=== PATIENT | male | born 1935 | race Caucasian/White ===

== ENCOUNTER 2016-04-23 04:46 | Emergency (ER) | payer OTHER, MEDICARE ==
[~2016-04-23] VITALS: Ht 188 cm; Wt 88.2 kg
[~2016-04-23 04:46] MED LIST: ADVIL200 MG PO; AGGRENOX1 CAPSULE PO; Aggrenox PO; CIALIS10 MG PO; CITALOPRAM HBR10 MG PO; DIABETA,MICRONAS5 MG PO; Dulcolax PO; ENDOCET 10-3251 EACH PO; FINASTERIDE5 MG PO; FLUDROCORTISON0.1 M1 PO; FOLIC ACID1 MG PO; GLUCAGON1 MG IM; GLUCOPHAGE XR750 MG PO; GLYBURID-METFO1 EAC2 PO; Glucophage PO; LITE COAT ASPI325 M1 PO; LOVASTATIN40 MG PO; Mycostatin TP; NITROSTAT,NITR0.4 M1 SL; Neurontin PO; OXYCODONE-ACET1 EACH PO; OYST-CAL D, OS500 M1 PO; PERCOCET 10/1 TABLE1 PO; PERCOCET 10/1 TABLET PO; PROAIR HFA8.5 GM IH; SENOKOT S,PE1 TABLET PO; SUPER B COMP1 TABLET PO; TAMSULOSIN HCL0.4 MG PO; THERAGRAN1 TABLET PO; TYLENOL ARTHRI650 MG PO; TYLENOL REGULA325 MG PO; ULTRAM50 MG PO; VIAGRA50 MG PO; VITAMIN C1000 MG PO; VITAMIN C500 M1 PO; VITAMIN D310000 UNI1 PO; VITAMIN D400 UNIT PO; ZESTRIL,PRINIV2.5 MG PO; ZESTRIL2.5 MG PO; Zocor PO
[2016-04-23 05:47] LABS: CHLORIDE 105 mEq/L (99-109); HEMATOCRIT 36.1 % (38.0-50.0); MCH 29.5 PG (29.0-34.0); MCHC 32.7 G/DL (30.0-36.0); MCV 90.3 FL (86-99); MEAN PLAT.VOLUME 10.2 uM^3 (9.0-12.4); PLATELET COUNT 108 K/uL (156-360); POTASSIUM 4.1 mEq/L (3.7-5.4); RBC DIS.WIDTH-CV 14.3 % (11.8-14.6); RBC DIS.WIDTH-SD 45.9 % (39-53); SODIUM 142 mEq/L (136-147); WHITE BLOOD COUNT 8.7 K/uL (4.1-10.2)
[2016-04-23 05:49] LABS: GLUCOSE 125 mg/dL (70-99)
[2016-04-23 05:50] LABS: ANION GAP 11 MEQ/L (2-14)
[2016-04-23 05:53] LABS: GFR ESTIMATE (CALCULATED) > 59 mL/min/; UREA NITROGEN (BUN) 23 mg/dL (9-23)
[2016-04-23 05:55] LABS: ADD MIUA? NO; BILIRUBIN NEGATIVE; BLOOD NEGATIVE; COLOR YELLOW ((YELLOW)); GLUCOSE (STRIP) NEGATIVE; KETONES NEGATIVE; LEUKOCYTES NEGATIVE; NITRITE NEGATIVE; PROTEIN (STRIP) NEGATIVE; SPECIFIC GRAVITY 1.018 (1.000-1.030); UCUL ADDED? NO; UROBILINOGEN 0.2 MG/DL (0.2-1.0)
[2016-04-23 05:56] LABS: TROP-I INTERPRETATION NEGATIVE; TROPONIN-I 0.02 ng/mL (0.0-0.30)
[2016-04-23] MEDS ORDERED: AMIODARONE HCL200 MG PO (13:35)
[2016-04-23 13:36] VITALS: BP 160/71
[2016-04-23] MEDS ORDERED: LASIX40 MG PO (13:37)
[2016-04-23] MEDS ORDERED: ROCEPHIN1000 MG IM (13:38)
[2016-04-23] MEDS ORDERED: SPIRIVA RESPIMAT4 GM IH (13:47)
== END 2016-04-23 13:37 | disposition home or self-care (01) ==
LOC: EME 04:46
PROVIDERS: Emergency Medicine
DX: E86.0 Dehydration (principal); R41.0 Disorientation, unspecified; Z85.46 Personal history of malignant neoplasm of prostate; Z86.73 Personal history of transient ischemic attack (TIA), and cerebral infarction without residual deficits
CPT/HCPCS: 70450; 71020; 80048; 81003; 83605; 84484; 85027; 87086; 93005; 99281; 99285; J7030; J7050

== ENCOUNTER 2016-04-26 13:31 | Emergency (ER) | payer OTHER, MEDICARE ==
[~2016-04-26] VITALS: Ht 188 cm; Wt 89.5 kg
[~2016-04-26 13:31] MED LIST changes: +AMIODARONE HCL200 MG PO; +LASIX40 MG PO; +ROCEPHIN1000 MG IM; +SPIRIVA RESPIMAT4 GM IH
[2016-04-26 14:01] LABS: HEMATOCRIT 34.3 % (38.0-50.0); MCH 29.1 PG (29.0-34.0); MCHC 31.8 G/DL (30.0-36.0); MCV 91.5 FL (86-99); MEAN PLAT.VOLUME 10.4 uM^3 (9.0-12.4); PLATELET COUNT 101 K/uL (156-360); RBC DIS.WIDTH-CV 14.5 % (11.8-14.6); RBC DIS.WIDTH-SD 47.4 % (39-53); RED BLOOD COUNT 3.75 M/uL (4.00-5.50); WHITE BLOOD COUNT 4.5 K/uL (4.1-10.2)
[2016-04-26 14:06] LABS: CHLORIDE 108 mEq/L (99-109); POTASSIUM 3.8 mEq/L (3.7-5.4); SODIUM 144 mEq/L (136-147)
[2016-04-26 14:09] LABS: GLUCOSE 140 mg/dL (70-99)
[2016-04-26 14:10] LABS: ANION GAP 9 MEQ/L (2-14); TOTAL BILIRUBIN 0.8 mg/dL (0.0-1.0)
[2016-04-26 14:12] LABS: ALKALINE PHOSPHATASE 65 IU/L (3-129); GFR ESTIMATE (CALCULATED) > 59 mL/min/
[2016-04-26 14:13] LABS: UREA NITROGEN (BUN) 16 mg/dL (9-23)
[2016-04-26] MEDS ORDERED: MOTRIN800 MG PO (16:52)
[2016-04-26 17:20] VITALS: BP 160/83
== END 2016-04-26 17:34 | disposition home or self-care (01) ==
LOC: EME 13:31
PROVIDERS: Emergency Medicine
DX: M17.0 Bilateral primary osteoarthritis of knee (principal); E11.9 Type 2 diabetes mellitus without complications; Z86.73 Personal history of transient ischemic attack (TIA), and cerebral infarction without residual deficits; Z85.46 Personal history of malignant neoplasm of prostate; W18.30XA Fall on same level, unspecified, initial encounter
CPT/HCPCS: 73564; 80053; 85027; 99281; 99284

== ENCOUNTER 2016-06-04 12:36 | Emergency (ER) | payer OTHER, MEDICARE ==
[~2016-06-04] VITALS: Ht 188 cm; Wt 81.0 kg
[~2016-06-04 12:36] MED LIST changes: +MOTRIN800 MG PO
[2016-06-04 14:34] LABS: EOSINOPHIL COUNT 0.1 K/uL (0-0.3); HEMATOCRIT 35.6 % (38.0-50.0); IMMATURE GRANULOCYTE (%) 0.2 % (0.0-0.7); IMMATURE GRANULOCYTE COUNT 0.2 K/uL; LYMPHOCYTE COUNT 0.5 K/uL (1.0-2.8); MCH 28.9 PG (29.0-34.0); MCHC 32.9 G/DL (30.0-36.0); MCV 87.9 FL (86-99); MEAN PLAT.VOLUME 10.4 uM^3 (9.0-12.4); MONOCYTE (%) 10.5 % (3-12); MONOCYTE COUNT 0.8 K/uL (0-0.8); NEUTROPHIL (%) 82.3 % (45-76); NEUTROPHIL COUNT 6.6 K/uL (1.8-6.4); PLATELET COUNT 124 K/uL (156-360); RBC DIS.WIDTH-CV 14.5 % (11.8-14.6); RBC DIS.WIDTH-SD 45.4 % (39-53); RED BLOOD COUNT 4.05 M/uL (4.00-5.50)
[2016-06-04 14:47] LABS: CHLORIDE 103 mEq/L (99-109); POTASSIUM 4.4 mEq/L (3.7-5.4); SODIUM 136 mEq/L (136-147)
[2016-06-04 14:49] LABS: GLUCOSE 124 mg/dL (70-99)
[2016-06-04 14:51] LABS: ANION GAP 9 MEQ/L (2-14); TOTAL BILIRUBIN 0.8 mg/dL (0.0-1.0)
[2016-06-04 14:53] LABS: ALKALINE PHOSPHATASE 79 IU/L (3-129); GFR ESTIMATE (CALCULATED) > 59 mL/min/
[2016-06-04 14:54] LABS: UREA NITROGEN (BUN) 12 mg/dL (9-23)
[2016-06-04 14:56] LABS: TROP-I INTERPRETATION NEGATIVE; TROPONIN-I 0.04 ng/mL (0.0-0.30)
[2016-06-04 15:33] LABS: INFLUENZA A VIRAL ANTIGEN NEGATIVE; INFLUENZA B VIRAL ANTIGEN NEGATIVE
[2016-06-04 16:03] LABS: ADD MIUA? YES; BILIRUBIN NEGATIVE; BLOOD NEGATIVE; COLOR AMBER ((YELLOW)); GLUCOSE (STRIP) NEGATIVE; KETONES 5; LEUKOCYTES TRACE; NITRITE NEGATIVE; PROTEIN (STRIP) 100; SPECIFIC GRAVITY 1.021 (1.000-1.030); UROBILINOGEN 0.2 MG/DL (0.2-1.0)
[2016-06-04 16:32] LABS: BACTERIA NONE SEEN /HPF; EPITHELIAL CELLS NONE SEEN /HPF; MUCUS NONE SEEN /LPF; RED BLOOD CELLS 0-5 /HPF (0-5); UCUL ADDED? NO; WHITE BLOOD CELLS NONE SEEN /HPF (0-5)
[2016-06-04 17:47] VITALS: BP 133/68
== END 2016-06-04 17:53 | disposition home or self-care (01) ==
LOC: EME 12:36
PROVIDERS: Emergency Medicine
DX: R53.1 Weakness (principal); M25.561 Pain in right knee; M25.562 Pain in left knee; R05 Cough; R11.0 Nausea; E11.9 Type 2 diabetes mellitus without complications; Z79.82 Long term (current) use of aspirin
CPT/HCPCS: 71010; 80053; 81003; 84484; 85025; 87502; 93005; 99281; 99285

== ENCOUNTER 2016-06-13 17:12 | Inpatient (IN) | payer OTHER, MEDICARE ==
[~2016-06-13] VITALS: Ht 188 cm; Wt 79.6 kg
[2016-06-13 18:40] LABS: EOSINOPHIL (%) 2.2 % (0-5); EOSINOPHIL COUNT 0.2 K/uL (0-0.3); HEMATOCRIT 42.2 % (38.0-50.0); IMMATURE GRANULOCYTE (%) 1.3 % (0.0-0.7); IMMATURE GRANULOCYTE COUNT 0.1 K/uL; INSTRUMENT ABS NEUTROPHIL CT 5.3 K/uL; LYMPHOCYTE COUNT 0.8 K/uL (1.0-2.8); MCH 28.3 PG (29.0-34.0); MCHC 31.3 G/DL (30.0-36.0); MCV 90.4 FL (86-99); MEAN PLAT.VOLUME 9.9 uM^3 (9.0-12.4); MONOCYTE (%) 7.6 % (3-12); MONOCYTE COUNT 0.5 K/uL (0-0.8); NEUTROPHIL (%) 77.2 % (45-76); NEUTROPHIL COUNT 5.3 K/uL (1.8-6.4); RBC DIS.WIDTH-SD 46.6 % (39-53); RED BLOOD COUNT 4.67 M/uL (4.00-5.50); WHITE BLOOD COUNT 6.9 K/uL (4.1-10.2)
[2016-06-13 18:47] LABS: PLATELET COUNT 215 K/uL (156-360)
[2016-06-13 18:50] LABS: CHLORIDE 102 mEq/L (99-109); SODIUM 138 mEq/L (136-147)
[2016-06-13 18:52] LABS: GLUCOSE 177 mg/dL (70-99)
[2016-06-13 18:53] LABS: ANION GAP 11 MEQ/L (2-14)
[2016-06-13 18:54] LABS: TOTAL BILIRUBIN 0.7 mg/dL (0.0-1.0)
[2016-06-13 18:55] LABS: ALKALINE PHOSPHATASE 217 IU/L (3-129)
[2016-06-13 18:56] LABS: GFR ESTIMATE (CALCULATED) > 59 mL/min/
[2016-06-13 18:57] LABS: UREA NITROGEN (BUN) 21 mg/dL (9-23)
[2016-06-13 19:00] LABS: TROP-I INTERPRETATION NEGATIVE; TROPONIN-I < 0.01 ng/mL (0.0-0.30)
[2016-06-13 19:07] LABS: ADD MIUA? YES; BILIRUBIN NEGATIVE; BLOOD NEGATIVE; COLOR AMBER ((YELLOW)); GLUCOSE (STRIP) NEGATIVE; KETONES NEGATIVE; LEUKOCYTES NEGATIVE; NITRITE NEGATIVE; PROTEIN (STRIP) 30; SPECIFIC GRAVITY 1.026 (1.000-1.030); UROBILINOGEN 0.2 MG/DL (0.2-1.0)
[2016-06-13 19:18] LABS: BACTERIA RARE /HPF; CALCIUM OXALATE CRYSTALS 2+ /HPF; EPITHELIAL CELLS RARE /HPF; MUCUS TRACE /LPF; RED BLOOD CELLS 0-5 /HPF (0-5); UCUL ADDED? NO; WHITE BLOOD CELLS 0-5 /HPF (0-5)
[2016-06-13] MEDS ORDERED: ARICEPT5 MG PO (19:48)
[2016-06-13] MEDS ORDERED: WELLBUTRIN XL150 MG PO (19:49)
[2016-06-13] MEDS ORDERED: PERCOCET 10/1 TABLET PO (19:49)
[2016-06-13] MEDS ORDERED: CELEBREX200 MG PO (19:49)
[2016-06-14] VITALS (12 sets, daily range): BP systolic 81–178; BP diastolic 51–79
[2016-06-14 06:03] LABS: ANION GAP 8 MEQ/L (2-14); CHLORIDE 105 MEQ/L (99-109); GFR ESTIMATE (CALCULATED) > 59 mL/min/; POTASSIUM 4.1 MEQ/L (3.7-5.4); SAMPLE HEMOLYSIS CHECK 0; SAMPLE ICTERIC CHECK 0; SAMPLE LIPEMIA CHECK 0; SODIUM 142 MEQ/L (136-147); UREA NITROGEN (BUN) 17 mg/dL (9-23)
[2016-06-14 06:07] LABS: GLUCOSE 102 mg/dL (70-99)
[2016-06-14 08:26] LABS: ALKALINE PHOSPHATASE 162 IU/L (3-129); DIRECT BILIRUBIN 0.2 mg/dL (0.0-0.3); TOTAL BILIRUBIN 0.6 MG/DL (0.0-1.0)
[2016-06-14 09:04] LABS: TROP-I INTERPRETATION NEGATIVE; TROPONIN-I < 0.01 ng/mL (0.0-0.30)
[2016-06-15] VITALS (8 sets, daily range): BP systolic 108–187; BP diastolic 58–85
[2016-06-15] MEDS ORDERED: FLORINEF ACETA0.1 MG PO (16:50)
== END 2016-06-15 19:00 | disposition home or self-care (01) | DRG 312 ==
LOC: EME → EDBD 17:12 → EME 17:12 → EDOF 20:49 → 5WEST 20:49 → EDOF 20:49 → 5WEST 23:09
PROVIDERS: Emergency Medicine; Family Medicine; Nurse Practitioner Family
DX: I95.1 Orthostatic hypotension (principal); R29.6 Repeated falls; F03.90 Unspecified dementia, unspecified severity, without behavioral disturbance, psychotic disturbance, mood disturbance, and anxiety; E11.9 Type 2 diabetes mellitus without complications; Z85.038 Personal history of other malignant neoplasm of large intestine; I10 Essential (primary) hypertension; Z86.73 Personal history of transient ischemic attack (TIA), and cerebral infarction without residual deficits
CPT/HCPCS: 70450; 70486; 71020; 80048; 80053; 80076; 81003; 84484; 85025; 93005; 99281; 99285; G0378; G8987 GO CJ; G8988 CI; G8989 GO CH; J7030; J7040

== ENCOUNTER 2016-07-01 11:30 | Inpatient (IN) | payer OTHER, MEDICARE ==
[~2016-07-01] VITALS: Ht 188 cm; Wt 76.6 kg
[~2016-07-01 11:30] MED LIST changes: +ARICEPT5 MG PO; +CELEBREX200 MG PO; +FLORINEF ACETA0.1 MG PO; +WELLBUTRIN XL150 MG PO
[2016-07-01 12:27] LABS: CHLORIDE 105 mEq/L (99-109); POTASSIUM 3.9 mEq/L (3.7-5.4); SODIUM 142 mEq/L (136-147)
[2016-07-01 12:28] LABS: INTER. NORMALIZED RATIO 1.1; PROTHROMBIN TIME 11.6 (9.2-11.2); PTT 27.4 (25-32)
[2016-07-01 12:29] LABS: GLUCOSE 170 mg/dL (70-99)
[2016-07-01 12:31] LABS: ANION GAP 8 MEQ/L (2-14); TOTAL BILIRUBIN 0.5 mg/dL (0.0-1.0)
[2016-07-01 12:33] LABS: ALKALINE PHOSPHATASE 84 IU/L (3-129); GFR ESTIMATE (CALCULATED) > 59 mL/min/
[2016-07-01 12:34] LABS: UREA NITROGEN (BUN) 11 mg/dL (9-23)
[2016-07-01 12:39] LABS: TROP-I INTERPRETATION NEGATIVE; TROPONIN-I < 0.01 ng/mL (0.0-0.30)
[2016-07-01 13:20] LABS: HEMATOCRIT 35.4 % (38.0-50.0); MCH 28.4 PG (29.0-34.0); MCHC 31.1 G/DL (30.0-36.0); MCV 91.2 FL (86-99); RBC DIS.WIDTH-CV 14.6 % (11.8-14.6); RBC DIS.WIDTH-SD 48.7 % (39-53); RED BLOOD COUNT 3.88 M/uL (4.00-5.50); WHITE BLOOD COUNT 5.5 K/uL (4.1-10.2)
[2016-07-01 14:36] LABS: MEAN PLAT.VOLUME 10.9 uM^3 (9.0-12.4); PLATELET COUNT 96 K/uL (156-360)
[2016-07-01 14:59] LABS: PLAT.SUFFICIENCY DECREASED
[2016-07-01 15:28] LABS: ADD MIUA? NO; BILIRUBIN NEGATIVE; BLOOD NEGATIVE; COLOR YELLOW ((YELLOW)); GLUCOSE (STRIP) NEGATIVE; KETONES NEGATIVE; LEUKOCYTES NEGATIVE; NITRITE NEGATIVE; PROTEIN (STRIP) NEGATIVE; SPECIFIC GRAVITY 1.005 (1.000-1.030); UCUL ADDED? NO; UROBILINOGEN 0.2 MG/DL (0.2-1.0)
[2016-07-01 17:30] VITALS: BP 114/73
[2016-07-01 19:14] LABS: TROP-I INTERPRETATION NEGATIVE; TROPONIN-I 0.02 ng/mL (0.0-0.30)
[2016-07-01 19:24] VITALS: BP 178/84
[2016-07-01 22:11] LABS: POINT-OF-CARE METER ID UU14162513
[2016-07-02 00:34] VITALS: BP 194/88
[2016-07-02 01:05] LABS: TROP-I INTERPRETATION NEGATIVE; TROPONIN-I 0.01 ng/mL (0.0-0.30)
[2016-07-02 04:41] VITALS: BP 183/82
[2016-07-02 06:29] LABS: POINT-OF-CARE METER ID UU13113831
[2016-07-02 06:46] LABS: EOSINOPHIL (%) 2.7 % (0-5); EOSINOPHIL COUNT 0.1 K/uL (0-0.3); IMMATURE GRANULOCYTE (%) 0.6 % (0.0-0.7); INSTRUMENT ABS NEUTROPHIL CT 3.5 K/uL; LYMPHOCYTE COUNT 0.9 K/uL (1.0-2.8); MCH 28.4 PG (29.0-34.0); MCHC 31.5 G/DL (30.0-36.0); MCV 90.2 FL (86-99); MEAN PLAT.VOLUME 10.6 uM^3 (9.0-12.4); MONOCYTE (%) 11.8 % (3-12); MONOCYTE COUNT 0.6 K/uL (0-0.8); NEUTROPHIL (%) 66.7 % (45-76); NEUTROPHIL COUNT 3.5 K/uL (1.8-6.4); PLATELET COUNT 85 K/uL (156-360); RBC DIS.WIDTH-CV 14.6 % (11.8-14.6); RBC DIS.WIDTH-SD 47.8 % (39-53); RED BLOOD COUNT 3.77 M/uL (4.00-5.50); WHITE BLOOD COUNT 5.2 K/uL (4.1-10.2)
[2016-07-02 07:11] LABS: ALKALINE PHOSPHATASE 79 IU/L (3-129); ANION GAP 7 MEQ/L (2-14); CHLORIDE 107 MEQ/L (99-109); DIRECT BILIRUBIN 0.2 mg/dL (0.0-0.3); GFR ESTIMATE (CALCULATED) > 59 mL/min/; GLUCOSE 87 mg/dL (70-99); POTASSIUM 3.4 MEQ/L (3.7-5.4); SAMPLE HEMOLYSIS CHECK 0; SAMPLE ICTERIC CHECK 0; SAMPLE LIPEMIA CHECK 0; SODIUM 143 MEQ/L (136-147); TOTAL BILIRUBIN 0.7 MG/DL (0.0-1.0); UREA NITROGEN (BUN) 10 mg/dL (9-23)
[2016-07-02 08:34] VITALS: BP 143/68
[2016-07-02 11:24] VITALS: BP 181/74
[2016-07-02] MEDS ORDERED: BUPROPION HCL150 M2 PO (11:39)
[2016-07-02] MEDS ORDERED: CITALOPRAM HBR10 MG PO (11:40)
[2016-07-02] MEDS ORDERED: FINASTERIDE5 MG PO (11:40)
[2016-07-02] MEDS ORDERED: GLUCOPHAGE XR750 MG PO (11:41)
[2016-07-02] MEDS ORDERED: TAMSULOSIN HCL0.4 MG PO (11:41)
[2016-07-02] MEDS ORDERED: ARICEPT5 MG PO (11:42)
[2016-07-02] MEDS ORDERED: FOLIC ACID1 MG PO (11:42)
[2016-07-02] MEDS ORDERED: LOVASTATIN40 MG PO (11:44)
[2016-07-02] MEDS ORDERED: B-COMPLEX-VITA1 EACH (11:44)
[2016-07-02] MEDS ORDERED: MIDODRINE HCL10 MG PO (11:44)
[2016-07-02] MEDS ORDERED: CELECOXIB200 MG PO (11:45)
[2016-07-02] MEDS ORDERED: LITE COAT ASPI325 M1 PO (11:45)
[2016-07-02] MEDS ORDERED: FLUDROCORTISON0.1 M1 PO (11:47)
[2016-07-02 17:00] VITALS: BP 201/91
[2016-07-02 20:12] VITALS: BP 167/71
[2016-07-02 21:00] LABS: POINT-OF-CARE METER ID UU13113700
[2016-07-03] VITALS (12 sets, daily range): BP systolic 128–191; BP diastolic 60–87
[2016-07-03 08:01] LABS: POINT-OF-CARE METER ID UU14162513
[2016-07-03 12:20] LABS: Estimated Average Glucose 120 mg/dL (70-123); HEMOGLOBIN A1c (GLYCOHEMOGLOB) 5.8 % HGB (Below 5.7)
[2016-07-03 12:39] LABS: POINT-OF-CARE METER ID UU14162513
[2016-07-03 18:13] LABS: POINT-OF-CARE METER ID UU14188625
[2016-07-04 00:03] VITALS: BP 165/89
[2016-07-04 04:00] VITALS: BP 189/88
[2016-07-04 07:38] LABS: EOSINOPHIL (%) 2.9 % (0-5); EOSINOPHIL COUNT 0.1 K/uL (0-0.3); HEMATOCRIT 35.3 % (38.0-50.0); IMM.RETIC FRACTION 11.3 % (3-19); IMMATURE GRANULOCYTE (%) 0.4 % (0.0-0.7); INSTRUMENT ABS NEUTROPHIL CT 3.3 K/uL; LYMPHOCYTE COUNT 0.8 K/uL (1.0-2.8); MCH 28.4 PG (29.0-34.0); MCHC 31.7 G/DL (30.0-36.0); MCV 89.4 FL (86-99); MONOCYTE (%) 11.1 % (3-12); MONOCYTE COUNT 0.5 K/uL (0-0.8); NEUTROPHIL (%) 68.5 % (45-76); NEUTROPHIL COUNT 3.3 K/uL (1.8-6.4); PLATELET COUNT 98 K/uL (156-360); RBC DIS.WIDTH-CV 14.7 % (11.8-14.6); RBC DIS.WIDTH-SD 47.8 % (39-53); RED BLOOD COUNT 3.95 M/uL (4.00-5.50); RETIC HGB EQUIVALENT 34.2 (28-36); WHITE BLOOD COUNT 4.8 K/uL (4.1-10.2)
[2016-07-04 07:39] LABS: RETICULOCYTE COUNT 1.3 % (0.5-1.8)
[2016-07-04 07:41] VITALS: BP 124/64
[2016-07-04 08:01] LABS: ALKALINE PHOSPHATASE 73 IU/L (3-129); ANION GAP 9 MEQ/L (2-14); CHLORIDE 109 MEQ/L (99-109); GFR ESTIMATE (CALCULATED) > 59 mL/min/; GLUCOSE 91 mg/dL (70-99); IRON 49 MCG/DL (35-150); POTASSIUM 3.3 MEQ/L (3.7-5.4); SAMPLE HEMOLYSIS CHECK 0; SAMPLE ICTERIC CHECK 0; SAMPLE LIPEMIA CHECK 0; SODIUM 143 MEQ/L (136-147); TOTAL BILIRUBIN 0.6 MG/DL (0.0-1.0); UREA NITROGEN (BUN) 9 mg/dL (9-23)
[2016-07-04 08:18] LABS: FERRITIN 21 NG/ML (22-322)
[2016-07-04 12:05] VITALS: BP 149/71
[2016-07-04 16:26] VITALS: BP 165/77
[2016-07-04 20:00] VITALS: BP 189/81
[2016-07-05] VITALS (9 sets, daily range): BP systolic 132–177; BP diastolic 67–82
[2016-07-05 07:24] LABS: ANION GAP 7 MEQ/L (2-14); CHLORIDE 110 MEQ/L (99-109); GFR ESTIMATE (CALCULATED) > 59 mL/min/; GLUCOSE 94 mg/dL (70-99); POTASSIUM 3.5 MEQ/L (3.7-5.4); SAMPLE HEMOLYSIS CHECK 0; SAMPLE ICTERIC CHECK 0; SAMPLE LIPEMIA CHECK 0; SODIUM 144 MEQ/L (136-147); UREA NITROGEN (BUN) 11 mg/dL (9-23)
[2016-07-05 07:37] LABS: POINT-OF-CARE METER ID UU14174225
[2016-07-05 16:30] LABS: POINT-OF-CARE METER ID UU14174225
[2016-07-06] VITALS (10 sets, daily range): BP systolic 121–179; BP diastolic 64–93
[2016-07-06 07:15] LABS: EOSINOPHIL (%) 2.1 % (0-5); EOSINOPHIL COUNT 0.1 K/uL (0-0.3); HEMATOCRIT 33.6 % (38.0-50.0); IMMATURE GRANULOCYTE (%) 0.5 % (0.0-0.7); LYMPHOCYTE COUNT 0.7 K/uL (1.0-2.8); MCH 28.7 PG (29.0-34.0); MCHC 32.1 G/DL (30.0-36.0); MCV 89.4 FL (86-99); MEAN PLAT.VOLUME 10.3 uM^3 (9.0-12.4); MONOCYTE (%) 11.6 % (3-12); MONOCYTE COUNT 0.5 K/uL (0-0.8); NEUTROPHIL (%) 68.6 % (45-76); PLATELET COUNT 97 K/uL (156-360); RBC DIS.WIDTH-CV 15.1 % (11.8-14.6); RBC DIS.WIDTH-SD 48.9 % (39-53); RED BLOOD COUNT 3.76 M/uL (4.00-5.50); WHITE BLOOD COUNT 4.3 K/uL (4.1-10.2)
[2016-07-06 07:36] LABS: POINT-OF-CARE METER ID UU14174225
[2016-07-06 07:41] LABS: ANION GAP 6 MEQ/L (2-14); CHLORIDE 111 MEQ/L (99-109); GFR ESTIMATE (CALCULATED) > 59 mL/min/; GLUCOSE 101 mg/dL (70-99); POTASSIUM 3.4 MEQ/L (3.7-5.4); SAMPLE HEMOLYSIS CHECK 0; SAMPLE ICTERIC CHECK 0; SAMPLE LIPEMIA CHECK 0; SODIUM 143 MEQ/L (136-147); UREA NITROGEN (BUN) 9 mg/dL (9-23)
[2016-07-06 12:08] LABS: POINT-OF-CARE METER ID UU14174225
[2016-07-06 17:17] LABS: POINT-OF-CARE METER ID UU14174225
[2016-07-07 01:21] VITALS: BP 147/67
[2016-07-07 04:05] VITALS: BP 188/74
[2016-07-07 07:19] LABS: EOSINOPHIL (%) 2.6 % (0-5); EOSINOPHIL COUNT 0.1 K/uL (0-0.3); HEMATOCRIT 32.4 % (38.0-50.0); IMMATURE GRANULOCYTE (%) 0.5 % (0.0-0.7); INSTRUMENT ABS NEUTROPHIL CT 2.7 K/uL; LYMPHOCYTE COUNT 0.9 K/uL (1.0-2.8); MCH 28.7 PG (29.0-34.0); MCHC 31.5 G/DL (30.0-36.0); MCV 91.3 FL (86-99); MEAN PLAT.VOLUME 10.5 uM^3 (9.0-12.4); MONOCYTE (%) 12.6 % (3-12); MONOCYTE COUNT 0.5 K/uL (0-0.8); NEUTROPHIL (%) 63.1 % (45-76); NEUTROPHIL COUNT 2.7 K/uL (1.8-6.4); PLATELET COUNT 94 K/uL (156-360); RBC DIS.WIDTH-CV 15.1 % (11.8-14.6); RBC DIS.WIDTH-SD 50.6 % (39-53); RED BLOOD COUNT 3.55 M/uL (4.00-5.50); WHITE BLOOD COUNT 4.3 K/uL (4.1-10.2)
[2016-07-07 07:43] LABS: ANION GAP 5 MEQ/L (2-14); CHLORIDE 110 MEQ/L (99-109); GFR ESTIMATE (CALCULATED) > 59 mL/min/; GLUCOSE 101 mg/dL (70-99); POTASSIUM 3.5 MEQ/L (3.7-5.4); SAMPLE HEMOLYSIS CHECK 0; SAMPLE ICTERIC CHECK 0; SAMPLE LIPEMIA CHECK 0; SODIUM 142 MEQ/L (136-147); UREA NITROGEN (BUN) 9 mg/dL (9-23)
[2016-07-07 08:55] VITALS: BP 183/82
[2016-07-07 12:40] VITALS: BP 181/80
[2016-07-07 15:46] VITALS: BP 160/74
[2016-07-07] MEDS ORDERED: AMLODIPINE BESYL5 MG PO (15:53)
[2016-07-07 16:27] LABS: POINT-OF-CARE METER ID UU14174225
== END 2016-07-07 17:22 | DRG 312 ==
LOC: EME → EDBD 11:30 → EME 11:30 → EDOF 14:58 → 5WEST 14:58 → 5SOUTH 07-02 11:15 → 5WEST 07-02 11:15 → 5SOUTH 07-03 17:49
PROVIDERS: Emergency Medicine; Hospitalist; Internal Medicine; Nurse Practitioner Adult Health; Physician Assistant; Student in an Organized Health Care Education/Training Program
DX: I95.1 Orthostatic hypotension (principal); I24.9 Acute ischemic heart disease, unspecified; I10 Essential (primary) hypertension; E11.9 Type 2 diabetes mellitus without complications; F03.90 Unspecified dementia, unspecified severity, without behavioral disturbance, psychotic disturbance, mood disturbance, and anxiety; Z85.46 Personal history of malignant neoplasm of prostate; D64.9 Anemia, unspecified; D69.6 Thrombocytopenia, unspecified; E86.0 Dehydration; E87.6 Hypokalemia; I27.2 Other secondary pulmonary hypertension; I08.0 Rheumatic disorders of both mitral and aortic valves; L89.322 Pressure ulcer of left buttock, stage 2
CPT/HCPCS: 71020; 80048; 80053; 80076; 81003; 82607; 82728; 82746; 82948; 83036; 83540; 84466; 84484; 85025; 85027; 85045; 85610; 85730; 86850; 86900; 86901; 93005; 93306; 99281; 99285; G0378; J0360; J1644; J1815; J3480; J7030

== ENCOUNTER 2016-08-28 15:47 | Inpatient (IN) | payer OTHER, MEDICARE ==
[~2016-08-28] VITALS: Ht 188 cm; Wt 74.0 kg
[~2016-08-28 15:47] MED LIST changes: +AMLODIPINE BESYL5 MG PO; +B-COMPLEX-VITA1 EACH; +BUPROPION HCL150 M2 PO; +CELECOXIB200 MG PO; +MIDODRINE HCL10 MG PO
[2016-08-28 16:28] LABS: EOSINOPHIL (%) 2.7 % (0-5); EOSINOPHIL COUNT 0.2 K/uL (0-0.3); HEMATOCRIT 40.6 % (38.0-50.0); IMMATURE GRANULOCYTE (%) 0.3 % (0.0-0.7); INSTRUMENT ABS NEUTROPHIL CT 4.7 K/uL; LYMPHOCYTE COUNT 0.8 K/uL (1.0-2.8); MCH 29.1 PG (29.0-34.0); MCHC 32.5 G/DL (30.0-36.0); MCV 89.4 FL (86-99); MEAN PLAT.VOLUME 9.9 uM^3 (9.0-12.4); MONOCYTE (%) 8.8 % (3-12); MONOCYTE COUNT 0.6 K/uL (0-0.8); NEUTROPHIL (%) 75.8 % (45-76); NEUTROPHIL COUNT 4.7 K/uL (1.8-6.4); PLATELET COUNT 99 K/uL (156-360); RBC DIS.WIDTH-CV 14.7 % (11.8-14.6); RBC DIS.WIDTH-SD 48.2 % (39-53); RED BLOOD COUNT 4.54 M/uL (4.00-5.50); WHITE BLOOD COUNT 6.3 K/uL (4.1-10.2)
[2016-08-28 16:36] LABS: CHLORIDE 105 mEq/L (99-109); POTASSIUM 3.8 mEq/L (3.7-5.4); SODIUM 143 mEq/L (136-147)
[2016-08-28 16:38] LABS: GLUCOSE 144 mg/dL (70-99)
[2016-08-28 16:40] LABS: ADD MIUA? YES; BILIRUBIN NEGATIVE; BLOOD NEGATIVE; COLOR AMBER ((YELLOW)); GLUCOSE (STRIP) NEGATIVE; KETONES NEGATIVE; LEUKOCYTES NEGATIVE; NITRITE NEGATIVE; PROTEIN (STRIP) 30
[2016-08-28 16:40] LABS: ANION GAP 6 MEQ/L (2-14); TOTAL BILIRUBIN 0.6 mg/dL (0.0-1.0)
[2016-08-28 16:42] LABS: ALKALINE PHOSPHATASE 70 IU/L (3-129); GFR ESTIMATE (CALCULATED) > 59 mL/min/
[2016-08-28 16:43] LABS: UREA NITROGEN (BUN) 14 mg/dL (9-23)
[2016-08-28 16:45] LABS: BACTERIA NONE SEEN /HPF; CALCIUM OXALATE CRYSTALS 1+ /HPF; EPITHELIAL CELLS RARE /HPF; GRANULAR CASTS 0-5 /LPF; MUCUS TRACE /LPF; RED BLOOD CELLS 0-5 /HPF (0-5); UCUL ADDED? NO; WHITE BLOOD CELLS 0-5 /HPF (0-5)
[2016-08-28 16:46] LABS: LIPASE 69 U/L (1.0-51.0)
[2016-08-28 16:48] LABS: TROP-I INTERPRETATION NEGATIVE; TROPONIN-I 0.01 ng/mL (0.0-0.30)
[2016-08-28] MEDS ORDERED: ARICEPT10 MG PO (22:01)
[2016-08-28] MEDS ORDERED: WELLBUTRIN XL150 MG PO (22:02)
[2016-08-28] MEDS ORDERED: AMLODIPINE BESYL5 MG PO (22:02)
[2016-08-28] MEDS ORDERED: B COMPLETE1 EACH PO (22:03)
[2016-08-28] MEDS ORDERED: MIDODRINE HCL2.5 MG PO (22:03)
[2016-08-28] MEDS ORDERED: POTASSIUM CHLO20 ME1 PO (22:04)
[2016-08-28] MEDS ORDERED: TRAZODONE HCL50 MG PO (22:04)
[2016-08-29] VITALS (7 sets, daily range): BP systolic 147–197; BP diastolic 66–85
[2016-08-29 03:19] LABS: POINT-OF-CARE METER ID UU14162513
[2016-08-29 03:41] LABS: HDL CHOLESTEROL 31 MG/DL (Desirable>=40); LDL CHOLESTEROL 43 mg/dL (Desirable<100); NON-HDL CHOLESTEROL 56 mg/dL (Desirable<160); TOTAL CHOLESTEROL 87 mg/dL (Desirable<200); TRIGLYCERIDES 65 MG/DL (Normal: <150)
[2016-08-29 06:04] LABS: HEMATOCRIT 37.6 % (38.0-50.0); MCH 29.4 PG (29.0-34.0); MCV 89.1 FL (86-99); MEAN PLAT.VOLUME 10.6 uM^3 (9.0-12.4); PLATELET COUNT 102 K/uL (156-360); RBC DIS.WIDTH-CV 14.8 % (11.8-14.6); RBC DIS.WIDTH-SD 47.9 % (39-53); RED BLOOD COUNT 4.22 M/uL (4.00-5.50)
[2016-08-29 06:21] LABS: POINT-OF-CARE METER ID UU13113831
[2016-08-29 06:24] LABS: ALKALINE PHOSPHATASE 65 IU/L (3-129); ANION GAP 9 MEQ/L (2-14); CHLORIDE 103 MEQ/L (99-109); GFR ESTIMATE (CALCULATED) > 59 mL/min/; POTASSIUM 3.4 MEQ/L (3.7-5.4); SAMPLE HEMOLYSIS CHECK 0; SAMPLE ICTERIC CHECK 0; SAMPLE LIPEMIA CHECK 0; SODIUM 143 MEQ/L (136-147); TOTAL BILIRUBIN 0.7 MG/DL (0.0-1.0); UREA NITROGEN (BUN) 12 mg/dL (9-23)
[2016-08-29 06:27] LABS: GLUCOSE 103 mg/dL (70-99)
[2016-08-29 07:24] LABS: Estimated Average Glucose 111 mg/dL (70-123); HEMOGLOBIN A1c (GLYCOHEMOGLOB) 5.5 % HGB (Below 5.7)
[2016-08-29 08:51] LABS: POINT-OF-CARE METER ID UU13113831
[2016-08-29 12:36] LABS: POINT-OF-CARE METER ID UU13113831
[2016-08-29 17:25] LABS: POINT-OF-CARE METER ID UU14162513
[2016-08-29 21:07] LABS: POINT-OF-CARE METER ID UU13113831
[2016-08-30] VITALS (8 sets, daily range): BP systolic 134–165; BP diastolic 60–72
[2016-08-31 03:51] VITALS: BP 139/76
[2016-08-31 07:55] LABS: MCH 29.3 PG (29.0-34.0); MCHC 32.4 G/DL (30.0-36.0); MCV 90.5 FL (86-99); MEAN PLAT.VOLUME 10.3 uM^3 (9.0-12.4); PLATELET COUNT 106 K/uL (156-360); RBC DIS.WIDTH-CV 15.3 % (11.8-14.6); RBC DIS.WIDTH-SD 50.1 % (39-53); WHITE BLOOD COUNT 5.1 K/uL (4.1-10.2)
[2016-08-31 08:24] LABS: ANION GAP 9 MEQ/L (2-14); CHLORIDE 107 MEQ/L (99-109); MAGNESIUM 1.6 mg/dl (1.3-2.7); POTASSIUM 3.6 MEQ/L (3.7-5.4); SAMPLE HEMOLYSIS CHECK 0; SAMPLE ICTERIC CHECK 0; SAMPLE LIPEMIA CHECK 0; SODIUM 145 MEQ/L (136-147)
[2016-08-31 08:29] LABS: GFR ESTIMATE (CALCULATED) > 59 mL/min/; GLUCOSE 94 mg/dL (70-99); UREA NITROGEN (BUN) 14 mg/dL (9-23)
[2016-08-31 08:33] VITALS: BP 171/77
[2016-08-31 11:54] VITALS: BP 149/67
[2016-08-31 15:43] VITALS: BP 131/64
[2016-08-31 16:33] LABS: POINT-OF-CARE METER ID UU14174225
[2016-08-31 17:12] LABS: POINT-OF-CARE METER ID UU14188625
[2016-08-31 18:29] VITALS: BP 132/59
[2016-08-31 22:16] LABS: POINT-OF-CARE METER ID UU14174225
[2016-08-31 23:29] VITALS: BP 148/71
[2016-09-01 03:33] VITALS: BP 140/72
[2016-09-01 07:24] LABS: HEMATOCRIT 37.5 % (38.0-50.0); MCH 29.7 PG (29.0-34.0); MCHC 32.5 G/DL (30.0-36.0); MCV 91.2 FL (86-99); MEAN PLAT.VOLUME 10.5 uM^3 (9.0-12.4); PLATELET COUNT 107 K/uL (156-360); RBC DIS.WIDTH-CV 15.3 % (11.8-14.6); RBC DIS.WIDTH-SD 51.1 % (39-53); RED BLOOD COUNT 4.11 M/uL (4.00-5.50)
[2016-09-01 07:29] VITALS: BP 168/74
[2016-09-01 07:52] LABS: ANION GAP 8 MEQ/L (2-14); CHLORIDE 105 MEQ/L (99-109); GFR ESTIMATE (CALCULATED) > 59 mL/min/; GLUCOSE 84 mg/dL (70-99); MAGNESIUM 1.5 mg/dl (1.3-2.7); POTASSIUM 3.8 MEQ/L (3.7-5.4); SAMPLE HEMOLYSIS CHECK 0; SAMPLE ICTERIC CHECK 0; SAMPLE LIPEMIA CHECK 0; SODIUM 144 MEQ/L (136-147); UREA NITROGEN (BUN) 17 mg/dL (9-23)
[2016-09-01 10:57] VITALS: BP 115/64
[2016-09-01] MEDS ORDERED: NOVOLOG PE100 UNITS/ SC (13:10)
[2016-09-01 15:09] VITALS: BP 136/65
== END 2016-09-01 17:35 | DRG 65 ==
LOC: EME 15:47 → 5WEST 22:58 → EDOF 22:58 → 5WEST 08-29 00:13 → 5SOUTH 08-29 10:39 → 5WEST 08-29 10:39 → 5SOUTH 08-29 22:47
PROVIDERS: Emergency Medicine; Hospitalist; Internal Medicine
DX: I63.9 Cerebral infarction, unspecified (principal); G81.91 Hemiplegia, unspecified affecting right dominant side; R47.02 Dysphasia; D69.6 Thrombocytopenia, unspecified; D64.9 Anemia, unspecified; E11.9 Type 2 diabetes mellitus without complications; E78.5 Hyperlipidemia, unspecified; F03.90 Unspecified dementia, unspecified severity, without behavioral disturbance, psychotic disturbance, mood disturbance, and anxiety; I10 Essential (primary) hypertension; F32.9 Major depressive disorder, single episode, unspecified; G43.909 Migraine, unspecified, not intractable, without status migrainosus; I35.1 Nonrheumatic aortic (valve) insufficiency; R94.31 Abnormal electrocardiogram [ECG] [EKG]; Z79.82 Long term (current) use of aspirin; Z85.46 Personal history of malignant neoplasm of prostate; Z98.1 Arthrodesis status
CPT/HCPCS: 70450; 70551; 71010; 80048; 80053; 80061; 81003; 82948; 83036; 83605; 83690; 83735; 84484; 85025; 85027; 92526 GN; 92610 GN; 93005; 93880; 99281; 99284; G0378; J0360; J1644; J1815

== ENCOUNTER 2016-10-02 14:42 | Inpatient (IN) | payer OTHER, MEDICARE ==
[~2016-10-02] VITALS: Ht 188 cm; Wt 72.2 kg
[~2016-10-02 14:42] MED LIST changes: +ARICEPT10 MG PO; +B COMPLETE1 EACH PO; +MIDODRINE HCL2.5 MG PO; +NOVOLOG PE100 UNITS/ SC; +POTASSIUM CHLO20 ME1 PO; +TRAZODONE HCL50 MG PO
[2016-10-02 15:55] LABS: EOSINOPHIL (%) 4.7 % (0-5); EOSINOPHIL COUNT 0.2 K/uL (0-0.3); HEMATOCRIT 36.7 % (38.0-50.0); IMMATURE GRANULOCYTE (%) 0.6 % (0.0-0.7); INSTRUMENT ABS NEUTROPHIL CT 3.4 K/uL; LYMPHOCYTE COUNT 0.7 K/uL (1.0-2.8); MCH 29.5 PG (29.0-34.0); MCHC 31.9 G/DL (30.0-36.0); MCV 92.4 FL (86-99); MEAN PLAT.VOLUME 9.9 uM^3 (9.0-12.4); MONOCYTE (%) 10.1 % (3-12); MONOCYTE COUNT 0.5 K/uL (0-0.8); NEUTROPHIL (%) 69.2 % (45-76); NEUTROPHIL COUNT 3.4 K/uL (1.8-6.4); PLATELET COUNT 117 K/uL (156-360); RBC DIS.WIDTH-CV 14.8 % (11.8-14.6); RBC DIS.WIDTH-SD 50.3 % (39-53); RED BLOOD COUNT 3.97 M/uL (4.00-5.50); WHITE BLOOD COUNT 4.9 K/uL (4.1-10.2)
[2016-10-02 16:05] LABS: CHLORIDE 105 mEq/L (99-109); POTASSIUM 3.7 mEq/L (3.7-5.4); SODIUM 142 mEq/L (136-147)
[2016-10-02 16:07] LABS: GLUCOSE 133 mg/dL (70-99); INTER. NORMALIZED RATIO 1.2; PROTHROMBIN TIME 12.1 (9.2-11.2); PTT 29.6 (25-32)
[2016-10-02 16:08] LABS: ANION GAP 5 MEQ/L (2-14)
[2016-10-02 16:10] LABS: GFR ESTIMATE (CALCULATED) > 59 mL/min/
[2016-10-02 16:11] LABS: UREA NITROGEN (BUN) 17 mg/dL (9-23)
[2016-10-02 16:19] LABS: TROP-I INTERPRETATION NEGATIVE; TROPONIN-I < 0.01 ng/mL (0.0-0.30)
[2016-10-02 17:08] LABS: ADD MIUA? YES; BILIRUBIN SMALL; BLOOD NEGATIVE; COLOR AMBER ((YELLOW)); GLUCOSE (STRIP) NEGATIVE; KETONES NEGATIVE; LEUKOCYTES NEGATIVE; NITRITE NEGATIVE; PROTEIN (STRIP) 30; SPECIFIC GRAVITY 1.024 (1.000-1.030)
[2016-10-02 17:16] LABS: AMPHETAMINE NEGATIVE (500 ng/mL); BARBITURATES NEGATIVE (200 ng/mL); BENZODIAZEPINES NEGATIVE (150 ng/mL); COCAINE NEGATIVE (150 ng/mL); INTERNAL CONTROLS VALID? YES; METHADONE NEGATIVE (200 ng/mL); METHAMPHETAMINE PRESUMPTIVE POSITIVE (500 ng/mL); OPIATES (MORPHINE) NEGATIVE (100 ng/mL); OXYCODONE NEGATIVE (100 ng/mL); PHENCYCLIDINE NEGATIVE (25 ng/mL); PROPOXYPHENE NEGATIVE (300 ng/mL); THC CANNABINOIDS NEGATIVE (50 ng/mL); TRICYCLIC ANTIDEPRESSANTS NEGATIVE (300 ng/mL)
[2016-10-02 17:17] LABS: BACTERIA NONE SEEN /HPF; EPITHELIAL CELLS RARE /HPF; MUCUS TRACE /LPF; RED BLOOD CELLS 0-5 /HPF (0-5); UCUL ADDED? NO; WHITE BLOOD CELLS 0-5 /HPF (0-5)
[2016-10-02] MEDS ORDERED: TYLENOL REGULA325 MG PO (18:18)
[2016-10-02 20:24] LABS: CREATINE KINASE 16 IU/L (1-294)
[2016-10-02 20:38] VITALS: BP 163/70
[2016-10-03 04:13] VITALS: BP 163/72
[2016-10-03 07:14] LABS: Estimated Average Glucose 108 mg/dL (70-123); HEMOGLOBIN A1c (GLYCOHEMOGLOB) 5.4 % HGB (Below 5.7)
[2016-10-03 08:04] VITALS: BP 175/74
[2016-10-03 09:21] LABS: HDL CHOLESTEROL 33 MG/DL (Desirable>=40); LDL CHOLESTEROL 44 mg/dL (Desirable<100); NON-HDL CHOLESTEROL 56 mg/dL (Desirable<160); TOTAL CHOLESTEROL 89 mg/dL (Desirable<200); TRIGLYCERIDES 62 MG/DL (Normal: <150)
[2016-10-03 09:23] LABS: POINT-OF-CARE METER ID UU14174225
[2016-10-03 11:09] VITALS: BP 166/73
[2016-10-03 16:00] VITALS: BP 125/70; BP 129/63
[2016-10-03 23:07] LABS: POINT-OF-CARE METER ID UU14174225
[2016-10-04] VITALS (7 sets, daily range): BP systolic 125–192; BP diastolic 61–82
[2016-10-04 09:18] LABS: POINT-OF-CARE METER ID UU13113717; POINT-OF-CARE USER ID STWAMT
[2016-10-04 11:45] LABS: POINT-OF-CARE METER ID UU13113717
[2016-10-04 16:26] LABS: POINT-OF-CARE METER ID UU13113717
[2016-10-04 22:02] LABS: POINT-OF-CARE METER ID UU13113717
[2016-10-05 04:04] VITALS: BP 118/75
[2016-10-05 07:16] LABS: POINT-OF-CARE METER ID UU14188625
[2016-10-05 07:40] VITALS: BP 185/83
[2016-10-05 11:06] LABS: POINT-OF-CARE METER ID UU14188625
[2016-10-05 11:15] VITALS: BP 122/77
[2016-10-05 15:04] VITALS: BP 159/70
[2016-10-05 21:32] LABS: POINT-OF-CARE METER ID UU14174225
[2016-10-06 03:10] VITALS: BP 195/81
[2016-10-06 08:00] VITALS: BP 149/75
[2016-10-06 12:06] VITALS: BP 138/72
[2016-10-06 16:13] VITALS: BP 135/67
[2016-10-06 17:03] LABS: POINT-OF-CARE METER ID UU13113717
[2016-10-06 20:00] VITALS: BP 146/67
[2016-10-07 00:02] VITALS: BP 149/62
[2016-10-07 03:32] VITALS: BP 133/71
[2016-10-07 07:36] LABS: POINT-OF-CARE METER ID UU14174225
[2016-10-07 08:00] VITALS: BP 136/71
[2016-10-07 11:44] LABS: POINT-OF-CARE METER ID UU14174225
[2016-10-07 12:17] VITALS: BP 132/72
[2016-10-07 16:27] VITALS: BP 128/66
[2016-10-07 17:29] LABS: POINT-OF-CARE METER ID UU14174225
[2016-10-07 23:35] VITALS: BP 133/64
[2016-10-08 08:10] VITALS: BP 150/84
[2016-10-08 10:48] LABS: HEMATOCRIT 43.1 % (38.0-50.0); MCH 30.6 PG (29.0-34.0); MCHC 32.7 G/DL (30.0-36.0); MCV 93.5 FL (86-99); MEAN PLAT.VOLUME 10.7 uM^3 (9.0-12.4); RBC DIS.WIDTH-CV 15.3 % (11.8-14.6); RBC DIS.WIDTH-SD 52.7 % (39-53); RED BLOOD COUNT 4.61 M/uL (4.00-5.50); WHITE BLOOD COUNT 5.1 K/uL (4.1-10.2)
[2016-10-08 10:50] LABS: PLATELET COUNT 168 K/uL (156-360)
[2016-10-08 11:12] LABS: ANION GAP 9 MEQ/L (2-14); CHLORIDE 104 MEQ/L (99-109); GFR ESTIMATE (CALCULATED) > 59 mL/min/; GLUCOSE 118 mg/dL (70-99); POTASSIUM 4.8 MEQ/L (3.7-5.4); SAMPLE HEMOLYSIS CHECK 0; SAMPLE ICTERIC CHECK 0; SAMPLE LIPEMIA CHECK 0; SODIUM 143 MEQ/L (136-147); UREA NITROGEN (BUN) 14 mg/dL (9-23)
[2016-10-08] MEDS ORDERED: ASPIR 8181 M1 PO (11:45)
[2016-10-08] MEDS ORDERED: PLAVIX75 MG PO (11:45)
[2016-10-08] MEDS ORDERED: ATORVASTATIN CA40 MG PO (11:46)
== END 2016-10-08 14:33 | DRG 66 ==
LOC: EME 14:42 → 5SOUTH 18:57 → EDOF 18:57 → 5SOUTH 20:25
PROVIDERS: Emergency Medicine; Hospitalist; Internal Medicine
DX: I63.40 Cerebral infarction due to embolism of unspecified cerebral artery (principal); R47.01 Aphasia; D64.9 Anemia, unspecified; D69.6 Thrombocytopenia, unspecified; I10 Essential (primary) hypertension; E11.9 Type 2 diabetes mellitus without complications; I48.91 Unspecified atrial fibrillation; I95.1 Orthostatic hypotension; I35.1 Nonrheumatic aortic (valve) insufficiency; I44.0 Atrioventricular block, first degree; I77.810 Thoracic aortic ectasia; G43.909 Migraine, unspecified, not intractable, without status migrainosus; G30.1 Alzheimer's disease with late onset; F02.80 Dementia in other diseases classified elsewhere, unspecified severity, without behavioral disturbance, psychotic disturbance, mood disturbance, and anxiety; R15.9 Full incontinence of feces; E78.5 Hyperlipidemia, unspecified; R00.1 Bradycardia, unspecified; M19.90 Unspecified osteoarthritis, unspecified site; F32.9 Major depressive disorder, single episode, unspecified; Z85.46 Personal history of malignant neoplasm of prostate; Z87.891 Personal history of nicotine dependence; Z79.82 Long term (current) use of aspirin; Z79.84 Long term (current) use of oral hypoglycemic drugs; Z82.49 Family history of ischemic heart disease and other diseases of the circulatory system; Z85.038 Personal history of other malignant neoplasm of large intestine; Z86.73 Personal history of transient ischemic attack (TIA), and cerebral infarction without residual deficits; Z90.49 Acquired absence of other specified parts of digestive tract
CPT/HCPCS: 70450; 70551; 71010; 80048; 80061; 81003; 82550; 82948; 83036; 83605; 84484; 85025; 85027; 85610; 85730; 87040; 92610 GN; 93005; 93306; 97530 GO; 99281; 99285; J1644; J1815; J7030

== ENCOUNTER 2016-12-26 20:48 | Emergency (ER) | payer OTHER, MEDICARE ==
[~2016-12-26] VITALS: Ht 188 cm; Wt 62.9 kg
[~2016-12-26 20:48] MED LIST changes: +ASPIR 8181 M1 PO; +ATORVASTATIN CA40 MG PO; +PLAVIX75 MG PO
[2016-12-26 21:49] LABS: ADD MIUA? YES; BILIRUBIN NEGATIVE; BLOOD NEGATIVE; COLOR YELLOW ((YELLOW)); GLUCOSE (STRIP) NEGATIVE; KETONES 5; LEUKOCYTES LARGE; NITRITE NEGATIVE; PROTEIN (STRIP) NEGATIVE; SPECIFIC GRAVITY 1.011 (1.000-1.030)
[2016-12-26 22:36] LABS: BACTERIA 2+ /HPF; EPITHELIAL CELLS RARE /HPF; MUCUS NONE SEEN /LPF; RED BLOOD CELLS NONE SEEN /HPF (0-5); UCUL ADDED? YES; WHITE BLOOD CELLS TNTC /HPF (0-5)
[2016-12-26 22:37] LABS: CASTS NONE SEEN /LPF; CRYSTALS NONE SEEN
[2016-12-26 22:49] LABS: EOSINOPHIL (%) 1.3 % (0-5); EOSINOPHIL COUNT 0.1 K/uL (0-0.3); HEMATOCRIT 39.6 % (38.0-50.0); IMMATURE GRANULOCYTE COUNT 0.1 K/uL; INSTRUMENT ABS NEUTROPHIL CT 4.8 K/uL; LYMPHOCYTE COUNT 0.7 K/uL (1.0-2.8); MCHC 33.1 G/DL (30.0-36.0); MCV 90.8 FL (86-99); MEAN PLAT.VOLUME 9.7 uM^3 (9.0-12.4); MONOCYTE (%) 7.1 % (3-12); MONOCYTE COUNT 0.4 K/uL (0-0.8); NEUTROPHIL (%) 79.2 % (45-76); NEUTROPHIL COUNT 4.8 K/uL (1.8-6.4); PLATELET COUNT 161 K/uL (156-360); RBC DIS.WIDTH-CV 13.6 % (11.8-14.6); RBC DIS.WIDTH-SD 45.8 % (39-53); RED BLOOD COUNT 4.36 M/uL (4.00-5.50); WHITE BLOOD COUNT 6.1 K/uL (4.1-10.2)
[2016-12-26 23:01] LABS: CHLORIDE 104 mEq/L (99-109); POTASSIUM 3.2 mEq/L (3.7-5.4); SODIUM 143 mEq/L (136-147)
[2016-12-26 23:03] LABS: GLUCOSE 109 mg/dL (70-99)
[2016-12-26 23:04] LABS: ANION GAP 13 MEQ/L (2-14)
[2016-12-26 23:05] LABS: TOTAL BILIRUBIN 0.9 mg/dL (0.0-1.0)
[2016-12-26 23:06] LABS: ALKALINE PHOSPHATASE 134 IU/L (3-129)
[2016-12-26 23:07] LABS: GFR ESTIMATE (CALCULATED) > 59 mL/min/
[2016-12-26 23:08] LABS: UREA NITROGEN (BUN) 9 mg/dL (9-23)
[2016-12-27] MEDS ORDERED: CIPRO500 MG PO (03:48)
[2016-12-27 05:42] VITALS: BP 132/79
== END 2016-12-27 05:44 | disposition home or self-care (01) ==
LOC: EME → EDBD 20:48 → EME 20:48
PROVIDERS: Emergency Medicine
DX: N39.0 Urinary tract infection, site not specified (principal); E86.0 Dehydration; R10.30 Lower abdominal pain, unspecified; F03.90 Unspecified dementia, unspecified severity, without behavioral disturbance, psychotic disturbance, mood disturbance, and anxiety; E11.9 Type 2 diabetes mellitus without complications; Z79.84 Long term (current) use of oral hypoglycemic drugs; F41.9 Anxiety disorder, unspecified; Z85.46 Personal history of malignant neoplasm of prostate; Z86.73 Personal history of transient ischemic attack (TIA), and cerebral infarction without residual deficits; F32.9 Major depressive disorder, single episode, unspecified
CPT/HCPCS: 74177; 80053; 81003; 85025; 87077; 87086; 87186; 99281; 99285; J0696; J7030; J7050